=== PATIENT | female | born 1980 | race Caucasian/White ===

== ENCOUNTER 2016-10-22 08:05 | Emergency (ER) | payer OTHER ==
--- NOTE | 2016-10-22 08:56 | DIAGNOSTIC IMAGING REPORT ---
PROCEDURE: XR CHEST 1 VIEW INDICATION: WHEEZING SHORTNES OF BREATH TECHNIQUE: Portable AP view (0845 hours). COMPARISON: None. FINDINGS: Allowing for overlying wires and electrodes, lungs are clear. Heart and mediastinum are normal. Thorax is normal. IMPRESSION: 1. Negative chest.
--- NOTE | 2016-10-22 10:07 | ED CLINICAL REPORT ---
Clinical Report - Physicians/Mid Levels [facility] [address] [place] [address] 10/22/2016 8:10 Patient: LANDY AKHTAR Time Seen: 0815; initial patient contact. Arrived- By ambulance. Historian- patient and EMS personnel. HISTORY OF PRESENT ILLNESS Chief Complaint: WHEEZING and HISTORY OF ASTHMA. This started today and is still present but is improving. It was abrupt in onset and has been constant but is not gone now. The dyspnea is described as severe. She has had dyspnea at rest. No sputum production, orthopnea or chest pain or discomfort. Asthma triggers: unknown. Takes asthma medications. Similar symptoms previously: Many times. ( states she normally gets better with albuterol. reports running out of her inhaler.). Recent medical care: Not recently seen/assessed. REVIEW OF SYSTEMS No sore throat, fever, headache, palpitations or skin rash. No pedal edema. All systems otherwise negative, except as recorded above. PAST HISTORY See nurses notes. Emphysema. Diabetes Mellitus. Asthma. Lung Cancer. ADDITIONAL SURGERIES: Hysterectom. Medications: Albuterol Sulfate Inhalation. PredniSONE Oral. Theophylline Oral 300 mg, 3x a day. Allergies: Dilaudid. Doxycycline. SOCIAL HISTORY Smoker- current status unknown. Alcohol use. History of drug use reports doing meth and pills "in the past." non-specific and evasive about specific time in the past. No recent travel. Is a local resident. ADDITIONAL NOTES The nursing notes have been reviewed. PHYSICAL EXAM Vital Signs: 10/22/2016 08:05 BP: 118/73. HR: 91. RR: 18. O2 saturation: 100%. Temp: 97.6 F. Blood pressure normal. Oxygen saturation normal. Appearance: No acute distress. (sleepy. non-toxic.). Eyes: Pupils equal, round and reactive to light. Eyes normal inspection. ENT: Ears normal. Nose normal. Pharynx normal. Uvula midline. Neck: Normal inspection. Neck supple. No meningeal signs. CVS: Normal heart rate and rhythm. Heart sounds normal. Respiratory: No respiratory distress. Mild respiratory distress with accessory muscle use and retractions. Wheezing present. Breath sounds normal. No stridor, rales or rhonchi. Abdomen: Soft and nontender. No organomegaly. Skin: Skin warm and dry. Normal skin color. No rash. Normal skin turgor. (except for areas of excoriation on the skin and face in different stages of healing. no signs of infection.). Extremities: Extremities exhibit normal ROM. No lower extremity edema. Neuro: No motor deficit. No sensory deficit. LABS, X-RAYS, AND EKG Chest X-ray: No acute disease. Normal lung markings present. Normal heart size. No infiltrate. Views: AP. Technique: good. The X-rays were independently viewed by me and interpreted contemporaneously by me. Prior films were not available for comparison. Laboratory Tests: CBC w Diff: (PIOTR: 10/22/2016 08:40) ( MsgRcvd 10/22/2016 08:46) Final results Test Result Flag Units (Reference) WHITE BLOOD COUNT 17.3 H K/uL (4.5-11.5) RED BLOOD COUNT 4.61 M/uL (4.00-5.20) HEMOGLOBIN 13.4 gm/dL (12.0-16.0) HEMATOCRIT 40.5 % (36.0-46.0) MEAN CELL VOLUME 88 fL (80-100) MEAN CORPUSCULAR HGB 29 pg (26-34) MEAN CORPUSCULAR HGB CONC 33 g/dL (31-37) RED CELL DISTRIBUTION WIDTH 14.5 % (11.6-14.8) PLATELET COUNT 436 H K/uL (150-400) NEUTROPHIL % 76.8 H % (50-75) LYMPH % 11.8 L % (25-40) MONO % 6.6 % (3-14) EOSINOPHIL % 4.5 H % (0-4) BASOPHIL % 0.3 % (0-2) . PROGRESS AND PROCEDURES Course of Care: patient with wheezing. not forthcoming with triggers. concern for substance abuse triggering asthma. UDS ordered with breathing treatment and lab studies. work up pending at this time. Patient to be signed over the oncoming doc at the change of shift. plan is to follow up with patient's labs, imaging, and respiratory status. 10:04 10/22/16. Went in to evaluate pt. Pt was sleeping comfortably and sPO2 on RA 100% w/out signs of any respiratory distress. Lung exam CTA. Leukocytosis noted, but pt is on Cx Prednisone and nl CXR. Disposition: Discharged home in good and improved condition. Condition: good. CLINICAL IMPRESSION Mild persistent asthma with an acute exacerbation. No status asthmaticus, pneumonia, hypoxemia or acute respiratory failure. Mild leukocytosis (Chronic from intermediate manager steroid use). INSTRUCTIONS Do not smoke. Seek medical help to quit smoking. Your Current Medications: CONTINUE TAKING THE FOLLOWING MEDICATIONS: Albuterol Sulfate Inhalation. PredniSONE Oral. Theophylline Oral : 300 mg 3x a day. Follow-up: Follow up with your doctor in about two days. Call for an appointment. Screening today revealed the patient's blood pressure to be in the normal range. (Electronically signed by Dc Loco Dr. 10/22/2016 10:56)
--- NOTE | 2016-10-22 10:07 | ED NURSING NOTES ---
Clinical Report - Nurses [facility] [address] [place] [address] 10/22/2016 8:10 Patient: LANDY AKHTAR TRIAGE Triage time 08:08. Acuity: LEVEL 3. Chief Complaint: "ASTHMA ATTACK". Alert. No acute distress. SEPSIS SCREEN: Sepsis Screen. Negative (no infection suspected/documented). RYAN COMA SCORE: [place] Coma Scale: 15- eyes open spontaneously (4); best verbal response- oriented x 4 (5); best motor response- obeys commands (6). --08:21 Panda Hernandez R.N. 08:05 10/22/16. BP: 118/73. HR: 91. RR: 18. O2 saturation: 100%. Temp: 97.6 F. Pain level now 0/10. --08:21 Panda Hernandez R.N. Weight: 63.5 kg stated. Height/Length: 68 inches Per Patient. BMI: 21.3. --08:10 Panda Hernandez R.N. Medications Theophylline Oral 300 mg, 3x a day. --08:13 Panda Hernandez R.N. PredniSONE Oral. --08:13 Panda Hernandez R.N. Albuterol Sulfate Inhalation. --08:13 Panda Hernandez R.N. Allergies Dilaudid. --08:14 Panda Hernandez R.N. Doxycycline. --08:14 Panda Hernandez R.N. History Arrived by EMS, and from home (M46). Historian: patient. ( Pt left inhaler at home and took a road trip with friends, while walking Pt felt SOB and declined into attack.). This started today. Treatment TAX ADJUSTER: Took breathing treatment x2. See EMS report. EMS treatment TAX ADJUSTER verbally communicated. See EMS report. BP: 124/80. HR: 110. RR: 32. O2 saturation: 100. End tidal CO2: 38. ( 18g R AC). PAST MEDICAL HX: Diabetes mellitus. Asthma. Immunizations: up-to-date. Last normal menstrual period- 9 years ago. Denies current . SOCIAL HX: Heavy tobacco smoker- less than 1 pack per day. No alcohol use or drug use. No infectious disease exposure. SELF HARM ASSESSMENT: A self harm assessment was performed. The patient answered "yes" to the question "Have you recently felt down, depressed, or hopeless?" and "no" to the question "Do you have thoughts of harming or killing yourself?" and "Have you recently had thoughts about harming or killing others?". FALL RISK ASSESSMENT: Fall risk assessment completed. No fall risk identified. NUTRITIONAL RISK ASSESSMENT: The nutritional risk assessment revealed no deficiencies. FUNCTIONAL ASSESSMENT: Functional assessment: no impairments noted. LEARNING NEEDS ASSESSMENT: The learning needs assessment revealed no barriers. ABUSE ASSESSMENT: Abuse assessment: The patient was asked "Do you feel safe in your home?". SKIN INTEGRITY ASSESSMENT: Skin integrity risk assessment completed. No skin integrity risk identified. RYAN COMA SCORE: [place] Coma Scale: 15- eyes open spontaneously (4); best verbal response- oriented x 4 (5); best motor response- obeys commands (6). --08:21 Panda Hernandez R.N. PROBLEMS: Emphysema. Diabetes Mellitus. Asthma. --08:16 Panda Hernandez R.N. Lung Cancer. --08:16 Panda Hernandez R.N. ADDITIONAL SURGERIES: Hysterectomy. --08:13 Panda Hernandez R.N. Interventions ID band on patient. To treatment room. --08:21 Panda Hernandez R.N. PHYSICAL ASSESSMENT To room via stretcher. GENERAL / NEURO / PSYCH: Alert. Oriented X 4. Appears in no acute distress. RESPIRATORY: No respiratory distress. Respirations not labored. Chest nontender. CVS: Cardiac rhythm: sinus tachycardia; (101). Capillary refill less than 2 seconds. SKIN: Skin is warm and dry. --08:25 Panda Hernandez R.N. NURSING PROGRESS NOTES monitoring manager and pulse oximeter placed on patient; monitor alarms on. Patient gowned. Reassurance given. Two patient identifiers checked. Call light placed in reach. Side rails up x 2. Safety measures: (Pt preference). Bed placed in lowest position. Brakes of bed on. Patient ready for evaluation- chart flagged and ED physician notified. --08:24 Panda Hernandez R.N. 08:06 10/22/2016 Site #1 started prior to arrival by EMS via IV in the right antecubital space with an 18g angiocath. --08:31 Soy Vogt R.N. 08:39 10/22/2016 Duoneb (Ipratropium-Albuterol) Neb TX Nebulizer 1 unit dose given. Given by the respiratory therapist. Allergies verified and confirmed 5 rights. --08:42 Panda Hernandez R.N. 08:42 10/22/2016 Started bag #1 1000 mL IV Fluids IV NS (Saline); at 999 mL/hr over 1 hour(s) via site #1 via IV pump. Allergies verified and confirmed 5 rights. IV patency established. IV site checked: no pain, redness, or swelling. IV flushed thoroughly pre- and post-medication administration. --08:43 Panda Hernandez R.N. Patient ID band checked for patient name and birthdate: patient confirmed. Blood samples drawn from the right antecubital space (prior to IV fluid start) with syringe 18g by nurse per protocol ; labeled in presence of the patient and sent to lab: rainbow set. Initial blood discarded. Line flushed with 10 mL normal saline post blood draw. --08:45 Panda eHrnandez R.N. 09:45 10/22/2016 IV Fluids IV NS Discontinued: bag #1 infused. Total amount infused: 1000 mL. IV patency established. IV site checked: no pain, redness, or swelling. IV flushed thoroughly. --10:45 Soy Vogt R.N. 10:25 10/22/2016 Site #1 removed upon discharge. Catheter intact. Manual pressure, pressure dressing and bandaid applied. --10:45 Soy Vogt R.N. DISPOSITION / DISCHARGE Departure time: 1030. --10:39 Soy Vogt R.N. 10:25 10/22/16. BP: 118/68. HR: 98. RR: 18. O2 saturation: 100% on room air. Temp: 98 F (oral). Pain level now: 0/10. --10:40 Soy Vogt R.N. Condition at departure: improved. No learning barriers present. Discharge instructions provided and reviewed with the patient. Reviewed medication(s) (prescription for rescue inhaler given to pt). Reviewed referral to family practice for followup. Patient verbalized understanding. Written instructions provided in Welsh. The patient was discharged by the physician. She was discharged home and unaccompanied at time of discharge. She left the Emergency Department ambulatory and via private vehicle. Patient driving. --10:42 Soy Vogt R.N. Locked/Released at 10/22/2016 10:46 by Soy Vogt R.N.
--- NOTE | 2016-10-22 10:07 | ED ORDER SUMMARY ---
..... Patient: LANDY AKHTAR OrderSheet [facility] VisitID: [id number] [place] [address] 35y, F Registration Date/Time: 10/22/2016 ORDER SHEET Weight: 63.5 kg (stated) Allergies: Dilaudid, Doxycycline GENERAL ORDERS: Chest 1V Urgent (08:10/22/2016 Ashutosh Melgoza) (Ack 8:30 PWeiler ER Tech1) (8:46 PWeiler ER Tech1) Laundry Washer (Continuous) (Respiratory Distress) (08:10/22/2016 Ashutosh Melgoza) (8:41 IJmiyaa R.N.) CBC w Diff Urgent (08:10/22/2016 Ashutosh Melgoza) (Ack 8:30 PWeiler ER Tech1) (8:41 IJurca R.N.) CMP Urgent (08:10/22/2016 Ashutosh Melgoza) (Ack 8:30 PWeiler ER Tech1) (8:41 IJurca R.N.) Urine Drug Screen Urgent (08:10/22/2016 Ashutosh Melgoza) (Ack 8:30 PWeiler ER Tech1) (8:41 IJurca R.N.) (Cancelled: Physician Order10:35 Christian Melgoza) Serum Quantitative Urgent (08:10/22/2016 Ashutosh Melgoza) (Ack 8:30 PWeiler ER Tech1) (8:41 IJurca R.N.) Pulse oximeter (08:10/22/2016 Ashutosh Melgoza) (8:41 IJurca R.N.) MEDICATION ORDERS: DuoNeb Neb Tx 1 unit dose (NOW) (08:10/22/2016 Ashutosh Melgoza) (8:42 Yaa R.N.) IV FLUIDS: IV Saline Lock (08:10/22/2016 Ashutosh Melgoza) (8:31 Nicoleelli R.N.) IV NS : initial bolus 1000 mL (1000 mL/hr), then none - for X1 (NOW) (08:37 10/22/2016 Ashutosh Melgoza) (8:43 Yaa Carmichael) ORDER SHEET NOTES: [Electronically signed by Soy Vogt R.N. (10:46 10/22/2016)] [Electronically signed by Dc Loco Dr. (10:56 10/22/2016)] [Electronically locked/signed by Soy Vogt R.N. (10:46 10/22/2016)]
--- NOTE | 2016-10-22 10:07 | ED NURSING NOTES ---
Clinical Report - Nurses [facility] [address] [place] [address] 10/22/2016 8:10 Patient: LANDY AKHTAR TRIAGE Triage time 08:08. Acuity: LEVEL 3. Chief Complaint: "ASTHMA ATTACK". Alert. No acute distress. SEPSIS SCREEN: Sepsis Screen. Negative (no infection suspected/documented). RYAN COMA SCORE: [place] Coma Scale: 15- eyes open spontaneously (4); best verbal response- oriented x 4 (5); best motor response- obeys commands (6). --08:21 Panda Hernandez R.N. 08:05 10/22/16. BP: 118/73. HR: 91. RR: 18. O2 saturation: 100%. Temp: 97.6 F. Pain level now 0/10. --08:21 Panda Hernandez R.N. Weight: 63.5 kg stated. Height/Length: 68 inches Per Patient. BMI: 21.3. --08:10 Panda Hernandez R.N. Medications Theophylline Oral 300 mg, 3x a day. --08:13 Panda Hernandez R.N. PredniSONE Oral. --08:13 Panda Hernandez R.N. Albuterol Sulfate Inhalation. --08:13 Panda Hernandez R.N. Allergies Dilaudid. --08:14 Panda Hernandez R.N. Doxycycline. --08:14 Panda Hernandez R.N. History Arrived by EMS, and from home (M46). Historian: patient. ( Pt left inhaler at home and took a road trip with friends, while walking Pt felt SOB and declined into attack.). This started today. Treatment TRY ON BASTER: Took breathing treatment x2. See EMS report. EMS treatment TRY ON BASTER verbally communicated. See EMS report. BP: 124/80. HR: 110. RR: 32. O2 saturation: 100. End tidal CO2: 38. ( 18g R AC). PAST MEDICAL HX: Diabetes mellitus. Asthma. Immunizations: up-to-date. Last normal menstrual period- 9 years ago. Denies current . SOCIAL HX: Heavy tobacco smoker- less than 1 pack per day. No alcohol use or drug use. No infectious disease exposure. SELF HARM ASSESSMENT: A self harm assessment was performed. The patient answered "yes" to the question "Have you recently felt down, depressed, or hopeless?" and "no" to the question "Do you have thoughts of harming or killing yourself?" and "Have you recently had thoughts about harming or killing others?". FALL RISK ASSESSMENT: Fall risk assessment completed. No fall risk identified. NUTRITIONAL RISK ASSESSMENT: The nutritional risk assessment revealed no deficiencies. FUNCTIONAL ASSESSMENT: Functional assessment: no impairments noted. LEARNING NEEDS ASSESSMENT: The learning needs assessment revealed no barriers. ABUSE ASSESSMENT: Abuse assessment: The patient was asked "Do you feel safe in your home?". SKIN INTEGRITY ASSESSMENT: Skin integrity risk assessment completed. No skin integrity risk identified. RYAN COMA SCORE: [place] Coma Scale: 15- eyes open spontaneously (4); best verbal response- oriented x 4 (5); best motor response- obeys commands (6). --08:21 Panda Hernandez R.N. PROBLEMS: Emphysema. Diabetes Mellitus. Asthma. --08:16 Panda Hernandez R.N. Lung Cancer. --08:16 Panda Hernandez R.N. ADDITIONAL SURGERIES: Hysterectomy. --08:13 Panda Hernandez R.N. Interventions ID band on patient. To treatment room. --08:21 Panda Hernandez R.N. PHYSICAL ASSESSMENT To room via stretcher. GENERAL / NEURO / PSYCH: Alert. Oriented X 4. Appears in no acute distress. RESPIRATORY: No respiratory distress. Respirations not labored. Chest nontender. CVS: Cardiac rhythm: sinus tachycardia; (101). Capillary refill less than 2 seconds. SKIN: Skin is warm and dry. --08:25 Panda Hernandez R.N. NURSING PROGRESS NOTES manager monitoring and pulse oximeter placed on patient; monitor alarms on. Patient gowned. Reassurance given. Two patient identifiers checked. Call light placed in reach. Side rails up x 2. Safety measures: (Pt preference). Bed placed in lowest position. Brakes of bed on. Patient ready for evaluation- chart flagged and ED physician notified. --08:24 Panda Hernandez R.N. 08:06 10/22/2016 Site #1 started prior to arrival by EMS via IV in the right antecubital space with an 18g angiocath. --08:31 Soy Vogt R.N. 08:39 10/22/2016 Duoneb (Ipratropium-Albuterol) Neb TX Nebulizer 1 unit dose given. Given by the respiratory therapist. Allergies verified and confirmed 5 rights. --08:42 Panda Hernandez R.N. 08:42 10/22/2016 Started bag #1 1000 mL IV Fluids IV NS (Saline); at 999 mL/hr over 1 hour(s) via site #1 via IV pump. Allergies verified and confirmed 5 rights. IV patency established. IV site checked: no pain, redness, or swelling. IV flushed thoroughly pre- and post-medication administration. --08:43 Panda Hernandez R.N. Patient ID band checked for patient name and birthdate: patient confirmed. Blood samples drawn from the right antecubital space (prior to IV fluid start) with syringe 18g by nurse per protocol ; labeled in presence of the patient and sent to lab: rainbow set. Initial blood discarded. Line flushed with 10 mL normal saline post blood draw. --08:45 Panda Hernandez R.N. 09:45 10/22/2016 IV Fluids IV NS Discontinued: bag #1 infused. Total amount infused: 1000 mL. IV patency established. IV site checked: no pain, redness, or swelling. IV flushed thoroughly. --10:45 Soy Vogt R.N. 10:25 10/22/2016 Site #1 removed upon discharge. Catheter intact. Manual pressure, pressure dressing and bandaid applied. --10:45 Soy Vogt R.N. DISPOSITION / DISCHARGE Departure time: 1030. --10:39 Soy Vogt R.N. 10:25 10/22/16. BP: 118/68. HR: 98. RR: 18. O2 saturation: 100% on room air. Temp: 98 F (oral). Pain level now: 0/10. --10:40 Soy Vogt R.N. Condition at departure: improved. No learning barriers present. Discharge instructions provided and reviewed with the patient. Reviewed medication(s) (prescription for rescue inhaler given to pt). Reviewed referral to family practice for followup. Patient verbalized understanding. Written instructions provided in Romansh. The patient was discharged by the physician. She was discharged home and unaccompanied at time of discharge. She left the Emergency Department ambulatory and via private vehicle. Patient driving. --10:42 Soy Vogt R.N. Locked/Released at 10/22/2016 10:46 by Soy Vogt R.N.
--- NOTE | 2016-10-22 10:07 | ED ORDER SUMMARY ---
..... Patient: LANDY AKHTAR OrderSheet [facility] VisitID: [id number] [place] [address] 35y, F Registration Date/Time: 10/22/2016 ORDER SHEET Weight: 63.5 kg (stated) Allergies: Dilaudid, Doxycycline GENERAL ORDERS: Chest 1V Urgent (08:10/22/2016 Ashutosh Melgoza) (Ack 8:30 PWeiler ER Tech1) (8:46 PWeiler ER Tech1) Final Inspector Shuttle (Continuous) (Respiratory Distress) (08:10/22/2016 Ashutosh Melgoza) (8:41 IJmiyaa R.N.) CBC w Diff Urgent (08:10/22/2016 Ashutosh Melgoza) (Ack 8:30 PWeiler ER Tech1) (8:41 IJurca R.N.) CMP Urgent (08:10/22/2016 Ashutosh Melgoza) (Ack 8:30 PWeiler ER Tech1) (8:41 IJurca R.N.) Urine Drug Screen Urgent (08:10/22/2016 Ashutosh Melgoza) (Ack 8:30 PWeiler ER Tech1) (8:41 IJurca R.N.) (Cancelled: Physician Order10:35 Christian Melgoza) Serum Quantitative Urgent (08:10/22/2016 Ashutosh Melgoza) (Ack 8:30 PWeiler ER Tech1) (8:41 IJurca R.N.) Pulse oximeter (08:10/22/2016 Ashutosh Melgoza) (8:41 IJurca R.N.) MEDICATION ORDERS: DuoNeb Neb Tx 1 unit dose (NOW) (08:10/22/2016 Ashutosh Melgoza) (8:42 Yaa R.N.) IV FLUIDS: IV Saline Lock (08:10/22/2016 Ashutosh Melgoza) (8:31 Nicoleelli R.N.) IV NS : initial bolus 1000 mL (1000 mL/hr), then none - for X1 (NOW) (08:37 10/22/2016 Ashutosh Melgoza) (8:43 Yaa Carmichael) ORDER SHEET NOTES: [Electronically signed by Soy Vogt R.N. (10:46 10/22/2016)] [Electronically signed by Dc Loco Dr. (10:56 10/22/2016)] [Electronically locked/signed by Soy Vogt R.N. (10:46 10/22/2016)]
--- NOTE | 2016-10-22 10:56 | ED DISCHARGE INSTRUCTIONS ---
Patient: LANDY AKHTAR General Instructions [facility] VisitID: [id number] [place] [address] 35y, F Registration Date/Time: 10/22/2016 Mild persistent asthma with an acute exacerbation. No status asthmaticus, pneumonia, hypoxemia or acute respiratory failure. 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 INSTRUCTIONS Do not smoke. Seek medical help to quit smoking. Your Current Medications: CONTINUE TAKING THE FOLLOWING MEDICATIONS: Albuterol Sulfate Inhalation. PredniSONE Oral. Theophylline Oral : 300 mg 3x a day. Follow-up: Follow up with your doctor in about two days. Call for an appointment. Screening today revealed the patient's blood pressure to be in the normal range. ADDITIONAL INFORMATION Asthma [Adult] Asthma is a disease where the small air passages within the lung go into spasm and restrict the flow of air. Inflammation and swelling of the airways cause further restriction. During an acute asthma attack, these factors cause difficulty breathing, wheezing, cough and chest tightness. An asthma attack can be triggered by many things. Common triggers include the common cold, bronchitis, pneumonia, irritants such as smoke or pullutants in the air, emotional upset and heavy exercise. Inmany adults with asthma, allergies todust, mold, pollen and animal dander can cause an asthma attack. Skipping doses of daily asthma medicine can also bring on an asthma attack. Asthma can be controlled with proper medicines and decreased exposure to known allergens. Home Care: Take prescribed medicine exactly at the times advised. If you have a hand-held inhaler or aerosol breathing medicine, do not use it more than once every four hours, unless told to do so. (If you need this medicine more than every four hours, you may need to return to the Emergency Room.) If prescribed an antibiotic or prednisone, take all of the medicine even if you are feeling better after a few days. Do not smoke. Avoid being exposed to the smoke of others. Some persons with asthma have worsening of their symptoms when they take aspirin and non-steroidal medicines like ibuprofen (Motrin, Advil) and naproxen (Aleve, Naprosyn). Talk to your doctor if you think this may apply to you. Acetaminophen (Tylenol)should be safe to use. Follow Up with your doctor, or as advised by our staff. Always bring all of your current medicines with you for your doctor to see. If you do not already have one, talk to your doctor about developing a personalized "Asthma Action Plan." [NOTE: A pneumococcal vaccine and yearly flu shot (every fall) are recommended. Ask your doctor about this.] Get Prompt Medical Attention if any of the following occur: Increased wheezing or shortness of breath Need to use your inhalers more often than usual without relief Fever of 100.4F (38C) or higher, or as directed by your healthcare provider Coughing up lots of dark-colored or bloody sputum (mucus) Chest pain with each breath You do not start to improve within 24 hours Call 911 If Any Of The Following Occur : Trouble walking or talking because of shortness of breath If you use a peak flow meter andyou are still in the red zone (less than 50 percent) 15 minutes after using inhaler medication Lips or fingernails turning turcios or blue How To Quit Smoking Smoking is one of the hardest habits to break. About half of all those who have ever smoked have been able to quit, and most of those (about 70%) who still smoke want to quit. Here are some of the best ways to stop smoking. Keep Trying: It takes most smokers about 8 tries before they are finally able to fully quit. So, the more often you try and fail, the better your chance of quitting the next time! So, don't give up! Go Cold [place]: Most ex-smokers quit cold turkey. Trying to cut back gradually doesn't seem to work as well, perhaps because it continues the smoking habit. Also, it is possible to fool yourself by inhaling more while smoking fewer cigarettes. This results in the same amount of nicotine in your body! Get Support: Support programs can make an important difference, especially for the heavy smoker. These groups offer lectures, methods to change your behavior and peer support. Call the free national Quitline for more information. 779-XJKR-XGH (073-067-6905). Low-cost or free programs are offered by many hospitals, local chapters of the [place] [employer] (116-600-5385) and the [place] [employer] (767-027-9031). Support at home is important too. Non-smokers can help by offering praise and encouragement. If the smoker fails to quit, encourage them to try again! Kzzc-Lxt-Pqdapyu Medicines: For those who can't quit on their own, Nicotine Replacement Therapy (NRT) may make quitting much easier. Certain aids such as the nicotine patch, gum and lozenge are available without a prescription. However, it is best to use these under the guidance of your doctor. The skin patch provides a steady supply of nicotine to the body. Nicotine gum and lozenge gives temporary bursts of low levels of nicotine. Both methods take the edge off the craving for cigarettes. WARNING: If you feel symptoms of nicotine overdose, such as nausea, vomiting, dizziness, weakness, or fast heartbeat, stop using these and see your doctor. Prescription Medicines: After evaluating your smoking patterns and prior attempts at quitting, your doctor may offer a prescription medicine such as bupropion (Zyban, Wellbutrin), varenicline (Chantix, Champix), a niocotine inhaler or nasal spray. Each has its unique advantage and side effects which your doctor can review with you. Health Benefits Of Quitting: The benefits of quitting start right away and keep improving the longer you go without smokin minutes: blood pressure and pulse return to normal 8 hours: oxygen levels return to normal 2 days: ability to smell and taste begins to improve as damaged nerves start to regrow 2-3 weeks: circulation and lung function improves 1-9 months: decreased cough, congestion and shortness of breath; less tired 1 year: risk of heart attack decreases by half 5 years: risk of lung cancer decreases by half; risk of stroke becomes the same as a non-smoker For information about how to quit smoking, visit the following links: National Cancer [place] , Clearing the Air, Quit Smoking Today - an online booklet. http://www.smokefree.gov/pubs/clearing_the_air.pdf Smokefree.gov http://smokefree.gov/ QuitNet http://www.quitnet.com/ You have been given the following additional information: Asthma, Acute (Adult) Smoking Cessation (Electronically signed by Dc Loco Dr. 10/22/2016 10:56)
--- NOTE | 2016-10-22 10:56 | ED MED RECONCILIATION SUMMARY ---
Patient: LANDY AKHTAR Medication Reconciliation Report [facility] VisitID: [id number] [address] [place] [address] 35y, F Registration Date/Time: 10/22/2016 Weight: 63.5 kg Height/Length: 68 in. BMI: 21.3 ALLERGIES: Dilaudid, Doxycycline The patient's Home Medications are listed below: CONTINUE TAKING THE FOLLOWING MEDICATIONS: Albuterol Sulfate Inhalation PredniSONE Oral Theophylline Oral 300 mg, 3x a day The source(s) of the original Home Medication information: Not obtained. The following Medications were given to the patient in the Emergency Department: Duoneb [Neb Tx] Neb TX 1 unit dose, administered: 10/22/2016 8:39:00 AM IV NS IV Fluids bolus 0, then 999 mL/hr, administered: 10/22/2016 8:42:00 AM The following Medications were prescribed to the patient: None.
--- NOTE | 2016-10-22 10:56 | ED MAR SUMMARY ---
..... Medication Administration Record [facility] [address] [place] [address] Patient: LANDY AKHTAR Visit ID: [id number] 35y, F Weight: 63.5 kg Height/Length: 68 in BMI: 21.3 ALLERGIES: Doxycycline, Dilaudid Given 08:39 10/22/2016 Panda Hernandez RJes Medication Administered: DUONEB [NEB TX] (IPRATROPIUM-ALBUTEROL), Dose: 1 unit dose Nebulizer Neb TX. Medication Ordered: DuoNeb Neb Tx 1 unit dose (NOW). Start 08:42 10/22/2016 Panda Hernandez, R.NDemetris, Stop 09:45 10/22/2016 Soy Vogt RDemetrisNDemetris Medication Administered: IV NS (SALINE), Dose: IV Fluids over 1 hour(s), Rate: 999 mL/hr, Dispensed: 1000 mL bag, Site: #1 right AC. Medication Ordered: IV NS : initial bolus 1000 mL (1000 mL/hr), then none - for X1 (NOW).
--- NOTE | 2016-10-22 10:56 | ED MED RECONCILIATION SUMMARY ---
Patient: LANDY AKHTAR Medication Reconciliation Report [facility] VisitID: [id number] [address] [place] [address] 35y, F Registration Date/Time: 10/22/2016 Weight: 63.5 kg Height/Length: 68 in. BMI: 21.3 ALLERGIES: Dilaudid, Doxycycline The patient's Home Medications are listed below: CONTINUE TAKING THE FOLLOWING MEDICATIONS: Albuterol Sulfate Inhalation PredniSONE Oral Theophylline Oral 300 mg, 3x a day The source(s) of the original Home Medication information: Not obtained. The following Medications were given to the patient in the Emergency Department: Duoneb [Neb Tx] Neb TX 1 unit dose, administered: 10/22/2016 8:39:00 AM IV NS IV Fluids bolus 0, then 999 mL/hr, administered: 10/22/2016 8:42:00 AM The following Medications were prescribed to the patient: None.
--- NOTE | 2016-10-22 10:56 | ED DISCHARGE INSTRUCTIONS ---
Patient: LANDY AKHTAR General Instructions [facility] VisitID: [id number] [place] [address] 35y, F Registration Date/Time: 10/22/2016 Mild persistent asthma with an acute exacerbation. No status asthmaticus, pneumonia, hypoxemia or acute respiratory failure. 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 INSTRUCTIONS Do not smoke. Seek medical help to quit smoking. Your Current Medications: CONTINUE TAKING THE FOLLOWING MEDICATIONS: Albuterol Sulfate Inhalation. PredniSONE Oral. Theophylline Oral : 300 mg 3x a day. Follow-up: Follow up with your doctor in about two days. Call for an appointment. Screening today revealed the patient's blood pressure to be in the normal range. ADDITIONAL INFORMATION Asthma [Adult] Asthma is a disease where the small air passages within the lung go into spasm and restrict the flow of air. Inflammation and swelling of the airways cause further restriction. During an acute asthma attack, these factors cause difficulty breathing, wheezing, cough and chest tightness. An asthma attack can be triggered by many things. Common triggers include the common cold, bronchitis, pneumonia, irritants such as smoke or pullutants in the air, emotional upset and heavy exercise. Inmany adults with asthma, allergies todust, mold, pollen and animal dander can cause an asthma attack. Skipping doses of daily asthma medicine can also bring on an asthma attack. Asthma can be controlled with proper medicines and decreased exposure to known allergens. Home Care: Take prescribed medicine exactly at the times advised. If you have a hand-held inhaler or aerosol breathing medicine, do not use it more than once every four hours, unless told to do so. (If you need this medicine more than every four hours, you may need to return to the Emergency Room.) If prescribed an antibiotic or prednisone, take all of the medicine even if you are feeling better after a few days. Do not smoke. Avoid being exposed to the smoke of others. Some persons with asthma have worsening of their symptoms when they take aspirin and non-steroidal medicines like ibuprofen (Motrin, Advil) and naproxen (Aleve, Naprosyn). Talk to your doctor if you think this may apply to you. Acetaminophen (Tylenol)should be safe to use. Follow Up with your doctor, or as advised by our staff. Always bring all of your current medicines with you for your doctor to see. If you do not already have one, talk to your doctor about developing a personalized "Asthma Action Plan." [NOTE: A pneumococcal vaccine and yearly flu shot (every fall) are recommended. Ask your doctor about this.] Get Prompt Medical Attention if any of the following occur: Increased wheezing or shortness of breath Need to use your inhalers more often than usual without relief Fever of 100.4F (38C) or higher, or as directed by your healthcare provider Coughing up lots of dark-colored or bloody sputum (mucus) Chest pain with each breath You do not start to improve within 24 hours Call 911 If Any Of The Following Occur : Trouble walking or talking because of shortness of breath If you use a peak flow meter andyou are still in the red zone (less than 50 percent) 15 minutes after using inhaler medication Lips or fingernails turning turcios or blue How To Quit Smoking Smoking is one of the hardest habits to break. About half of all those who have ever smoked have been able to quit, and most of those (about 70%) who still smoke want to quit. Here are some of the best ways to stop smoking. Keep Trying: It takes most smokers about 8 tries before they are finally able to fully quit. So, the more often you try and fail, the better your chance of quitting the next time! So, don't give up! Go Cold [place]: Most ex-smokers quit cold turkey. Trying to cut back gradually doesn't seem to work as well, perhaps because it continues the smoking habit. Also, it is possible to fool yourself by inhaling more while smoking fewer cigarettes. This results in the same amount of nicotine in your body! Get Support: Support programs can make an important difference, especially for the heavy smoker. These groups offer lectures, methods to change your behavior and peer support. Call the free national Quitline for more information. 143-JGBL-VXG (122-905-1356). Low-cost or free programs are offered by many hospitals, local chapters of the [place] [employer] (750-251-2813) and the [place] [employer] (215-591-0980). Support at home is important too. Non-smokers can help by offering praise and encouragement. If the smoker fails to quit, encourage them to try again! Pfhl-Zhk-Fildjll Medicines: For those who can't quit on their own, Nicotine Replacement Therapy (NRT) may make quitting much easier. Certain aids such as the nicotine patch, gum and lozenge are available without a prescription. However, it is best to use these under the guidance of your doctor. The skin patch provides a steady supply of nicotine to the body. Nicotine gum and lozenge gives temporary bursts of low levels of nicotine. Both methods take the edge off the craving for cigarettes. WARNING: If you feel symptoms of nicotine overdose, such as nausea, vomiting, dizziness, weakness, or fast heartbeat, stop using these and see your doctor. Prescription Medicines: After evaluating your smoking patterns and prior attempts at quitting, your doctor may offer a prescription medicine such as bupropion (Zyban, Wellbutrin), varenicline (Chantix, Champix), a niocotine inhaler or nasal spray. Each has its unique advantage and side effects which your doctor can review with you. Health Benefits Of Quitting: The benefits of quitting start right away and keep improving the longer you go without smokin minutes: blood pressure and pulse return to normal 8 hours: oxygen levels return to normal 2 days: ability to smell and taste begins to improve as damaged nerves start to regrow 2-3 weeks: circulation and lung function improves 1-9 months: decreased cough, congestion and shortness of breath; less tired 1 year: risk of heart attack decreases by half 5 years: risk of lung cancer decreases by half; risk of stroke becomes the same as a non-smoker For information about how to quit smoking, visit the following links: National Cancer [place] , Clearing the Air, Quit Smoking Today - an online booklet. http://www.smokefree.gov/pubs/clearing_the_air.pdf Smokefree.gov http://smokefree.gov/ QuitNet http://www.quitnet.com/ You have been given the following additional information: Asthma, Acute (Adult) Smoking Cessation (Electronically signed by Dc Loco Dr. 10/22/2016 10:56)
--- NOTE | 2016-10-22 10:56 | ED MAR SUMMARY ---
..... Medication Administration Record [facility] [address] [address] Patient: LANDY AKHTAR Visit ID: [id number] 35y, F Weight: 63.5 kg Height/Length: 68 in BMI: 21.3 ALLERGIES: Doxycycline, Dilaudid Given 08:39 10/22/2016 Panda Hernandez RJes Medication Administered: DUONEB [NEB TX] (IPRATROPIUM-ALBUTEROL), Dose: 1 unit dose Nebulizer Neb TX. Medication Ordered: DuoNeb Neb Tx 1 unit dose (NOW). Start 08:42 10/22/2016 Panda Hernandez, R.NDemetris, Stop 09:45 10/22/2016 Soy Vogt RDemetrisNDemetris Medication Administered: IV NS (SALINE), Dose: IV Fluids over 1 hour(s), Rate: 999 mL/hr, Dispensed: 1000 mL bag, Site: #1 right AC. Medication Ordered: IV NS : initial bolus 1000 mL (1000 mL/hr), then none - for X1 (NOW).
== END 2016-10-22 10:30 | disposition home or self-care (01) ==
LOC: ED SRH 08:05
DX: J45.31 Mild persistent asthma with (acute) exacerbation (principal); D72.829 Elevated white blood cell count, unspecified; E11.9 Type 2 diabetes mellitus without complications; Z79.899 Other long term (current) drug therapy; Z88.1 Allergy status to other antibiotic agents; Z88.5 Allergy status to narcotic agent; Z72.0 Tobacco use; Z85.118 Personal history of other malignant neoplasm of bronchus and lung
CPT/HCPCS: 90100; 90197; 95059